=== PATIENT | male | born 1990 | race Caucasian/White ===

== ENCOUNTER 2017-01-02 17:24 | Emergency (ER) | payer OTHER ==
--- NOTE | 2017-01-02 18:15 | ER Document Report ---
ED ENT - General Chief Complaint: Ear Pain Stated Complaint: EAR PAIN Mode of Arrival: Ambulatory Information source: Patient - HPI Patient complains to provider of: Ear problem Onset: Just prior to arrival Onset/Duration: Sudden Notes: Patient's here with complaints of left ear pain. He states that he was at [facility] with his young son who had a balloon on the stick. His son inserted the stick of the balloon into his left ear canal causing pain and decreased hearing. He states that he was having some bleeding from the ear. The bleeding seems to have stopped. He believes that his tetanus is up to date, he is in the . He denies any nausea, vomiting, diarrhea. He denies any other injuries or any other complaints at this time. - Related Data Allergies/Adverse Reactions: No Known Allergies Allergy (Unverified 01/02/17 17:59) Past Medical History - Social History Smoking Status: Unknown if Ever Smoked Family History: Reviewed & Not Pertinent Surgical Hx: Negative Review of Systems - Review of Systems -: Yes All other systems reviewed and negative Physical Exam - Vital signs Vitals: Temp Pulse Resp BP Pulse Ox 98.1 F 57 L 20 140/76 H 100 01/02/17 17:51 01/02/17 17:51 01/02/17 17:51 01/02/17 17:51 01/02/17 17:51 - Notes Notes: GENERAL: alert, cooperative, nontoxic, no distress. HEAD: normocephalic, atraumatic EYES: conjunctiva pink without discharge, no external redness or swelling. EARS: no external swelling, no external redness. Patient is noted to have an abrasion to the inferior aspect of the left ear canal with dried blood noted. There is a small perforation in the TM. There is no active bleeding noted at this time. No purulent drainage. No foreign body identified. NOSE: atraumatic, no external swelling MOUTH/THROAT: mucous membranes moist and pink NECK: soft, supple, full range of motion, no meningismus. CHEST: no distress, lungs clear and equal throughout. No wheezing, rales, rhonchi. CARDIAC: regular rate and rhythm, no murmur, normal capillary refill, normal pulses. BACK: full range of motion, no CVA tenderness. EXTREMITIES: full range of motion of all extremities. No redness, no swelling. NEURO: alert and oriented 3, no focal deficits, full range of motion of all extremities. PYSCH: appropriate mood, affect. Patient is cooperative. SKIN: pink, warm, dry, no rash. Course - Re-evaluation Re-evalutation: 01/02/17 18:14 Patient is nontoxic. Stable vitals. The patient states that his young son inserted a plastic balloon stick into his left ear causing some bleeding. Noted to have an abrasion within the ear canal as well as a small perforation in the eardrum. He'll be discharged home on Floxin ear drops. Follow-up with ENT at the next available appointment to ensure improvement. Follow-up sooner for increased pain, fever, persistent bleeding, or any further concerns. The patient denied any prescription for pain medication. Patient will be discharged home at this time. The patient is noted to have elevated blood pressure during today's emergency department visit. The patient was informed of this finding. The patient was instructed that this may be related to pre-hypertension and requires further evaluation with a primary care provider. The patient has no hypertensive symptoms at this time. The patient's emergency department workup and current diagnosis were explained to the patient and or family. Follow-up instructions were provided. Medications if prescribed were discussed. Instructions for when to return to the emergency department including specific worrisome symptoms were discussed with the patient and/or family. - Vital Signs Vital signs: Temp Pulse Resp BP Pulse Ox 98.1 F 57 L 20 140/76 H 100 01/02/17 17:51 01/02/17 17:51 01/02/17 17:51 01/02/17 17:51 01/02/17 17:51 Discharge - Discharge Clinical Impression: Perforated left tympanic membrane on examination Abrasion of left ear canal Qualifiers: Encounter type: initial encounter Qualified Code(s): S00.412A - Abrasion of left ear, initial encounter Condition: Stable Disposition: HOME, SELF-CARE Instructions: Perforated Eardrum ([facility]) Additional Instructions: Take medications as prescribed. Tylenol and Motrin as needed for pain. Follow up with ENT at the next available appointment to ensure improvement. Follow-up sooner for increased pain, fever, persistent bleeding, redness or swelling around the outside of the ear, or any further concerns. Your blood pressure was elevated during today's visit. Have this rechecked with your doctor. Prescriptions: Ofloxacin [Floxin] 10 drop OT DAILY #1 bottle Forms: Elevated Blood Pressure Referrals: MARTA SANCHEZ MD [ACTIVE STAFF] - Follow up as needed
[2017-01-02 18:37] VITALS: BP 119/55
== END 2017-01-02 18:37 | disposition home or self-care (01) ==
LOC: ER 17:24
DX: S00.412A Abrasion of left ear, initial encounter (principal); H72.92 Unspecified perforation of tympanic membrane, left ear; H92.02 Otalgia, left ear; X58.XXXA Exposure to other specified factors, initial encounter
CPT/HCPCS: 99282